=== PATIENT | female | born 1985 | race Two or more races ===

== ENCOUNTER 2016-03-20 22:00 | Emergency (ER) | payer SELFPAY ==
[~2016-03-20] VITALS: Ht 162.6 cm; Wt 93.9 kg
[2016-03-20 22:22] VITALS: BP 138/84
== END 2016-03-21 07:42 | disposition left against medical advice (07) ==
LOC: ER 22:03
DX: K08.89 Other specified disorders of teeth and supporting structures (principal); R10.9 Unspecified abdominal pain; R11.2 Nausea with vomiting, unspecified; Z53.21 Procedure and treatment not carried out due to patient leaving prior to being seen by health care provider